=== PATIENT | female | born 1945 ===

== ENCOUNTER 2022-12-15 06:48 | Day surgery (SDC) | payer OTHER ==
[~2022-12-15] VITALS: Ht 162.6 cm; Wt 68.0 kg
[~2022-12-15 06:48] MED LIST: ACID REDUCER20 M1 PO; ATACAND16 MG PO; FAMOTIDINE40 MG PO; LATA; TIZA PO; VITAMINS PO
== END 2022-12-15 17:45 | disposition home or self-care (01) ==
LOC: CIR.AMB 06:48
PROVIDERS: ATTEND Colon & Rectal Surgery
DX: K64.2 Third degree hemorrhoids (principal); K64.8 Other hemorrhoids; K64.4 Residual hemorrhoidal skin tags; Z20.822 Contact with and (suspected) exposure to COVID-19; I10 Essential (primary) hypertension; Z88.0 Allergy status to penicillin; Z91.013 Allergy to seafood